=== PATIENT | female | born 1995 | race Caucasian/White ===

== ENCOUNTER 2025-03-09 19:15 | Emergency (ER) | payer OTHER, SELFPAY ==
[2025-03-09] VITALS (8 sets, daily range): BP systolic 117–147; BP diastolic 63–76; PULSE 80–114; RESP 18; TEMP 36.6; O2SAT 95–98; BMI 40.7
--- NOTE | 2025-03-09 19:29 | ED_ITS ---
HPI - Neck Pain/Injury General Chief Complaint: Neck Pain/Injury Stated Complaint: neck px 3 days, Time Seen by Provider: 03/09/25 19:25 Mode of arrival: Ambulatory History of Present Illness HPI Narrative: 29-year-old female fully immunized healthy patient with no significant pmh or psh hx presents with to 3 days of neck pain, cough with clear yet intermittent brown sputum production, sinus pressure and drainage, sorethroat, unrelieved with allergy medicines and no relief alternating Tylenol and ibuprofen. Patient denies fever, chills, body aches, stiff neck, rash, dental pain, difficulty swallowing, trauma to the area. Other than what is stated 14 pt ROS is negative. Related Data Previous Rx's Medication Instructions Recorded amoxicillin 500 mg capsule 500 mg PO BID #20 caps 06/07/19 cephalexin 500 mg capsule 500 mg PO BID #14 caps 03/09/25 tramadol 50 mg tablet 50 mg PO Q8H PRN pain #10 tabs 03/09/25 Allergies Allergy/AdvReac Type Severity Reaction Status Date / Time No Known Drug Allergies Allergy Verified 03/09/25 19:25 Review of Systems Review of Systems ROS Unobtainable: All systems reviewed & are unremarkable except as noted in HPI and below Patient History Social History Smoking Status: Current every day smoker Smoking Status: Current every day smoker tobacco type: cigarettes Exam Narrative Exam Narrative: GENERAL: [29] year old patient appears stated age. Well-developed patient, in mild distress. HEAD: Atraumatic. Normocephalic. EYES: Pupils equal round and reactive. Extraocular motions intact. No scleral icterus. No injection or drainage. ENT: Nose without bleeding, purulent drainage. Throat without erythema, tonsillar hypertrophy or exudate. Airway patent. NECK: Trachea midline. TTP midline c4-7 with dec ROM in all direcctions CARDIOVASCULAR: Regular rate and rhythm without murmurs, gallops, or rubs. RESPIRATORY: Clear to auscultation. Breath sounds equal bilaterally. No wheezes, rales, or rhonchi. GASTROINTESTINAL: Abdomen soft, non-tender, nondistended. EXTREMITIES: No edema or joint tenderness. BACK: Nontender without deformity or crepitance. No flank tenderness. NEURO: AOx3. SKIN: No rash or erythema of visible areas Initial Vital Signs Initial Vital Signs: Vital Signs Temperature 97.8 F 03/09/25 19:25 Pulse Rate 114 H 03/09/25 19:25 Respiratory Rate 18 03/09/25 19:25 Blood Pressure 147/76 H 03/09/25 19:25 Pulse Oximetry 97 03/09/25 19:25 Oxygen Delivery Method Room Air 03/09/25 19:25 Course Orders Ordered: ED Orders 03/09/25 20:00 CT soft tissue neck w con Stat 03/09/25 20:10 Covid-19 + FLU A/B + RSV - PCR Stat 03/09/25 20:15 CBC Auto Diff [Complete Blood Count AUTO DIFF] Stat CMP [Comprehensive Metabolic Panel] Stat Strep Grp A by PCR Rapid Stat Throat Culture Stat Discontinued Medications Cyclobenzaprine HCl (Cyclobenzaprine 10 Mg Tablet) 10 mg PO NOW ONE Stop: 03/09/25 20:47 Last Admin: 03/09/25 20:52 Dose: 10 mg Documented By: NURYS Lactated Ringer's (Lactated Ringers) 1,000 mls @ 1,000 mls/hr IV BOLUS ONE Stop: 03/09/25 20:59 Last Admin: 03/09/25 20:08 Dose: 1,000 mls/hr Documented By: NURYS Ketorolac Tromethamine (Ketorolac 30 Mg/Ml Vial) 30 mg IV NOW ONE Stop: 03/09/25 20:01 Last Admin: 03/09/25 20:08 Dose: 30 mg Documented By: NURYS Methylprednisolone (Methylprednisolone 125 Mg/2 Ml Vial) 125 mg IV NOW ONE Stop: 03/09/25 20:47 Last Admin: 03/09/25 20:52 Dose: 125 mg Documented By: NURYS Vital Signs Vital signs: Vital Signs - 8 hr 03/09/25 19:25 Temperature 97.8 F Pulse Rate 114 H Respiratory Rate 18 Blood Pressure 147/76 H Pulse Oximetry 97 Oxygen Delivery Method Room Air MDM - Neck Pain/Injury Lab Data 03/09/25 20:15 03/09/25 20:15 Labs: Lab Results 03/09/25 Range/Units 20:15 WBC 9.4 (4.5-11.0) X10^3/uL RBC 4.80 (4.0-5.2) X10^6/uL Hgb 14.6 (12.0-16.0) g/dL Hct 42.3 (36-46) % MCV 88.0 (80-100) fL MCH 30.4 (26-34) PG MCHC 34.6 (30-36) % RDW 13.5 (11.6-14.8) % Plt Count 325 (150-400) X10^3/uL Neut % (Auto) 69.3 (50-75) % Lymph % (Auto) 14.4 L (25-40) % [place] % (Auto) 13.9 (3-14) % Eos % (Auto) 1.8 L (2-4) % Baso % (Auto) 0.6 (0-2) % Neut # (Auto) 6500 (1621-0480) /uL Lymph # (Auto) 1300 (9890-0112) /uL [place] # (Auto) 1300 H (0-900) /uL Eos # (Auto) 200 (0-450) /uL Baso # (Auto) 100 (0-100) /uL Sodium 136 L (137-145) mmol/L Potassium 3.9 (3.4-5.1) mmol/L Chloride 105 (98-107) mmol/L Carbon Dioxide 22 (22-32) mmol/L BUN 9 (7-17) mg/dL Creatinine 0.70 (0.52-1.04) mg/dL Estimated GFR > 60 (>60) mL/min BUN/Creatinine Ratio 12.9 (6-22) Glucose 95 (70-99) mg/dL Calcium 8.9 (8.4-10.2) mg/dL Total Bilirubin 0.6 (0.2-1.3) mg/dL AST 31 (14-36) IU/L ALT 31 (<35) IU/L Alkaline Phosphatase 118 (38-126) U/L Total Protein 8.3 H (6.3-8.2) g/dL Albumin 4.4 (3.5-5.0) g/dL Globulin 3.9 (1.7-4.1) g/dL Albumin/Globulin Ratio 1.1 (1.0-2.8) Group A Strep (PCR) Negative (Negative) Imaging Data CT - cervical spine: Radiologist's Impression: [address] [address] [address] Scan Report Signed Patient: Catracho Blanton MR#: [id number] : 07/21/1935 Acct:[id number] Age/Sex: 89 / M Date of Service: 03/09/25 Loc: [place] [address] CT Scan Report Signed Patient: Yoselyn Christensen MR#: [id number] : 1995 Acct:[id number] Age/Sex: 29 / F Date of Service: 03/09/25 Loc: ED Accession Number: [id number] Procedure: CT soft tissue neck w con Ordering Provider: Rico Bateman D.O. PROCEDURE: CT SOFT TISSUE NECK W CON INDICATIONS: neck pain TECHNIQUE: After the administration of intravenous contrast, 3.0 mm axial sections acquired from the sella to the aortic arch. Additional oblique axial 3.0 mm sections acquired through the pharynx. 3 mm thick coronal and sagittal reformats were generated. For radiation dose reduction, the following was used: automated exposure control. COMPARISON: None. FINDINGS: Image quality: Excellent. Lymph nodes: No enlarged lymph nodes seen throughout the neck. Vessels: Visualized vasculature appears patent. Neck spaces: There is mild parapharyngeal tonsillar enlargement is seen suggestive of mild tonsillitis suggest clinical correlation. No discrete tonsillar abscess collection. Rest of the airway is patent. The vocal cords, false vocal cords, pyriform sinuses, epiglottis, vallecula, and tongue base all appear normal. Extramucosal spaces appear unremarkable. Glands: The parotid and submandibular glands appear normal. Thyroid gland is within normal limits. Miscellaneous: Visualized brain and orbits appear normal. Lung apices appear clear. Superficial soft tissues appear normal. Bones: No suspicious bony lesions. Bilateral mastoid is are well aerated. Mucosal thickening in bilateral ethmoid sinuses are seen. Mild mucosal thickening in bilateral maxillary sinuses also noted. IMPRESSION: 1. Slight prominence of the parapharyngeal tonsil concerning for low-grade tonsillitis. No discrete tonsillar abscess collection is seen. No gross neck soft tissue lymphadenopathy. The airway is patent. 2. Mild mucosal thickening in bilateral ethmoid sinuses and maxillary sinuses concerning for low-grade sinusitis. Bilateral mastoids are well aerated. MDM Narrative Medical decision making narrative: All lab work vital signs nurse triage note medication list and all previous ER visits including all imaging modalities reviewed. Patient given Solu-Medrol 125 mg IV Rocephin 1 g IV lactated Ringer 1 L bolus Flexeril and Toradol IV here. Differential diagnosis includes peritonsillar abscess, strep throat, COVID, flu, RSV, mono, sinusitis, tonsillitis Discharge Plan Departure Patient Disposition: Home Clinical Impression: Acute bacterial tonsillitis, Sinusitis, bacterial Instructions: DI for Pharyngitis/Tonsillopharyngitis -- Adult Activity Restrictions/Additional Instructions: Return with new or worsening symptoms. Take your medicines as directed. Follow up with PCP in 1-2 weeks if no improvement in symptoms. Prescriptions: New cephalexin 500 mg capsule 500 mg PO BID Qty: 14 0RF tramadol 50 mg tablet 50 mg PO Q8H PRN (Reason: pain) Qty: 10 0RF No Action amoxicillin 500 mg capsule 500 mg PO BID Qty: 20 0RF Referrals: Miscellaneous,Doctor, MD [Primary Care Provider] - Stand Alone Forms: Patient Portal/API/Survey
--- NOTE | 2025-03-09 20:00 | DI.CT.S_ITS ---
PROCEDURE: CT SOFT TISSUE NECK W CON INDICATIONS: neck pain TECHNIQUE: After the administration of intravenous contrast, 3.0 mm axial sections acquired from the sella to the aortic arch. Additional oblique axial 3.0 mm sections acquired through the pharynx. 3 mm thick coronal and sagittal reformats were generated. For radiation dose reduction, the following was used: automated exposure control. COMPARISON: None. FINDINGS: Image quality: Excellent. Lymph nodes: No enlarged lymph nodes seen throughout the neck. Vessels: Visualized vasculature appears patent. Neck spaces: There is mild parapharyngeal tonsillar enlargement is seen suggestive of mild tonsillitis suggest clinical correlation. No discrete tonsillar abscess collection. Rest of the airway is patent. The vocal cords, false vocal cords, pyriform sinuses, epiglottis, vallecula, and tongue base all appear normal. Extramucosal spaces appear unremarkable. Glands: The parotid and submandibular glands appear normal. Thyroid gland is within normal limits. Miscellaneous: Visualized brain and orbits appear normal. Lung apices appear clear. Superficial soft tissues appear normal. Bones: No suspicious bony lesions. Bilateral mastoid is are well aerated. Mucosal thickening in bilateral ethmoid sinuses are seen. Mild mucosal thickening in bilateral maxillary sinuses also noted. IMPRESSION: 1. Slight prominence of the parapharyngeal tonsil concerning for low-grade tonsillitis. No discrete tonsillar abscess collection is seen. No gross neck soft tissue lymphadenopathy. The airway is patent. 2. Mild mucosal thickening in bilateral ethmoid sinuses and maxillary sinuses concerning for low-grade sinusitis. Bilateral mastoids are well aerated. Dictated by: Paco Rubin M.D. on 03/09/2025 at 20:53 Approved by: Paco Rubin M.D. on 03/09/2025 at 20:55
[2025-03-09] MEDS: LACTATED RINGERS 1,000 ML 1000 ML IV (20:08)
[2025-03-09] MEDS: KETOROLAC 30 MG/ML VIAL IV (20:08)
[2025-03-09 20:23] LABS: Add Manual Diff / Slide Review NO; Basophils Absolute Auto 100 /uL (0-100); Basophils Percent Auto 0.6 % (0-2); Eosinophils Absolute Auto 200 /uL (0-450); Eosinophils Percent Auto 1.8 % (2-4); Hematocrit 42.3 % (36-46); Hemoglobin 14.6 g/dL (12.0-16.0); Lymphocytes Absolute Auto 1300 /uL (1100-4500); Lymphocytes Percent Auto 14.4 % (25-40); Mean Corpuscular HGB Conc 34.6 % (30-36); Mean Corpuscular Hemoglobin 30.4 PG (26-34); Monocytes Absolute Auto 1300 /uL (0-900); Monocytes Percent Auto 13.9 % (3-14); Neutrophils Absolute Auto 6500 /uL (1500-7000); Neutrophils Percent Auto 69.3 % (50-75); Platelet Count 325 X10^3/uL (150-400); Red Cell Distribution Width 13.5 % (11.6-14.8); White Blood Cell Count 9.4 X10^3/uL (4.5-11.0)
[2025-03-09 20:34] LABS: Alanine Aminotransferase 31 IU/L (<35); Albumin 4.4 g/dL (3.5-5.0); Albumin Globulin Ratio 1.1 (1.0-2.8); Alkaline Phosphatase 118 U/L (38-126); Aspartate Aminotransferase 31 IU/L (14-36); BUN Creatinine Ratio 12.9 (6-22); Bilirubin Total 0.6 mg/dL (0.2-1.3); Blood Urea Nitrogen 9 mg/dL (7-17); Calcium 8.9 mg/dL (8.4-10.2); Carbon Dioxide 22 mmol/L (22-32); Chloride 105 mmol/L (98-107); Estimated Glomerular Filt Rate > 60 mL/min (>60); Globulin 3.9 g/dL (1.7-4.1); Glucose 95 mg/dL (70-99); HEMOLYSIS < 15 (0-50); Potassium 3.9 mmol/L (3.4-5.1); Sodium 136 mmol/L (137-145); Total Protein 8.3 g/dL (6.3-8.2)
[2025-03-09 20:37] LABS: Strep Grp A by PCR Rapid Negative (Negative)
[2025-03-09] MEDS: CYCLOBENZAPRINE 10 MG TABLET PO (20:52)
[2025-03-09] MEDS: methylPREDNISolone 125 MG/2 ML VIAL IV (20:52)
[2025-03-09] MEDS: cefTRIAXone 1,000 MG in SODIUM CHLORIDE 0.9% 100 ML 200 MG IV (21:13)
[2025-03-09 21:24] LABS: Influenza A - CEPHEID Flu A NEGATIVE (NEGATIVE); Influenza B - CEPHEID Flu B NEGATIVE (NEGATIVE); Respiratory Syncytial Virus Negative (Negative)
[2025-03-09 21:38] LABS: COVID-19 CEPHEID 4-PLEX PCR Negative (Negative)
== END 2025-03-09 22:10 | disposition home or self-care (01) ==
PROVIDERS: Emergency Provider Family Medicine
DX: J03.90 Acute tonsillitis, unspecified (principal); J01.90 Acute sinusitis, unspecified; R05.9 Cough, unspecified; F17.210 Nicotine dependence, cigarettes, uncomplicated
CPT/HCPCS: 0241U; 36415; 70491; 80053; 85025; 87070; 87651; 96361; 96365; 96375; 99284; J0696; J1885; J2919; Q9967

== ENCOUNTER 2025-05-11 22:11 | Emergency (ER) | payer OTHER, SELFPAY ==
[2025-05-11 22:14] VITALS: BP 133/86; PULSE 90; RESP 20; TEMP 36.9; O2SAT 98; BMI 40.7
--- NOTE | 2025-05-11 22:30 | PC.NURSE ---
Ice pack provided in triage
[2025-05-11 23:38] VITALS: BP 130/66; PULSE 80; RESP 20; O2SAT 99
[2025-05-11 23:39] VITALS: BP 131/66; O2SAT 100
--- NOTE | 2025-05-12 02:51 | ED_ITS ---
HPI - Wound/Laceration General Chief Complaint: Wound/Laceration Stated Complaint: RT insepct bite thigh red,swollen 2xdays ago Time Seen by Provider: 05/12/25 02:47 Source: patient Mode of arrival: Ambulatory History of Present Illness HPI narrative: 29-year-old female complains of redness painful area right medial thigh, no definite insect bite or envenomation recalled. No current treatment. Area of redness seems about 8 cm, was outlined in pen. No fevers or chills. No recent injections or skin wounds in that area. Related Data Previous Rx's ?Medication ?Instructions ?Recorded cephalexin 500 mg capsule 500 mg PO QID 7 days #28 cap s 05/12/25 Allergies Allergy/AdvReac Type Severity Reaction Status Date / Time No Known Drug Allergies Allergy Verified 05/11/25 23:54 Patient History Social History Smoking Status: Current every day smoker Smoking Status: Current every day smoker tobacco type: cigarettes Exam Narrative Exam Narrative: GENERAL: Well-developed patient, in mild distress. HEAD: Atraumatic. Normocephalic. EYES: Pupils equal round and reactive. Extraocular motions intact. No scleral icterus. No injection or drainage. ENT: Nose without bleeding, purulent drainage. Throat without erythema, tonsillar hypertrophy or exudate. Airway patent. NECK: Trachea midline. Non tender CARDIOVASCULAR: Regular rate and rhythm without murmurs, gallops, or rubs. RESPIRATORY: Clear to auscultation. Breath sounds equal bilaterally. No wheezes, rales, or rhonchi. GASTROINTESTINAL: Abdomen soft, non-tender, nondistended. EXTREMITIES: Medial right thigh with a cm area of induration, no fluctuance, consistent with cellulitis. No urticarial plaque component. BACK: Nontender without deformity or crepitance. No flank tenderness. NEURO: AOx3. Motor functions grossly nonfocal. SKIN: No rash or erythema of visible areas Initial Vital Signs Initial Vital Signs: Vital Signs Temperature 98.4 F 05/11/25 22:14 Pulse Rate 90 05/11/25 22:14 Respiratory Rate 20 05/11/25 22:14 Blood Pressure 133/86 05/11/25 22:14 Pulse Oximetry 98 05/11/25 22:14 Oxygen Delivery Method Room Air 05/11/25 22:14 Course Orders Ordered: Discontinued Medications Cephalexin HCl (Cephalexin 250 Mg Capsule) 500 mg PO NOW ONE Stop: 05/12/25 02:52 Last Admin: 05/12/25 03:12 Dose: 500 mg Documented By: CLARISSE Vital Signs Vital signs: Vital Signs - 8 hr 05/12/25 03:11 05/12/25 03:12 05/12/25 03:12 Pulse Rate 70 81 Blood Pressure 131/90 Pulse Oximetry 100 96 Oxygen Delivery Method Room Air MDM - Wound/Laceration MDM Narrative Medical decision making narrative: 29-year-old female with redness painful skin wound right thigh, no injury or sting or bite from arthropod known, consider follicular abscess, though patient does not seem to think that she has had problems with any ingrown hairs. Trial of antibiotics. Keflex 1st dose given, prescription for further Keflex course. Advised [id number] analgesics as needed. Wound check with PCP in 2 days if not improving, return precautions discussed. Discharged home. Discharge Plan Departure Patient Disposition: Home Clinical Impression: Cellulitis of right thigh Activity Restrictions/Additional Instructions: Right thigh redness, no definite insect bite known, small central punctum. Consider follicular infection with spreading cellulitis. No obvious drainable fluid collection by clinical exam. Consider antibiotic, 1st dose of cephalexin given in the emergency department, prescription for further course sent to your pharmacy. Take antibiotics as directed. Take Tylenol and or Motrin for pain control as needed. Wound check with Re regular provider if not improving in the next couple of days. Return to this/nearest emergency department for any change worsening symptoms or any concerns prior. Prescriptions: New cephalexin 500 mg capsule 500 mg PO QID 7 Days Qty: 28 0RF Referrals: Miscellaneous,DoctorMD [Primary Care Provider, Medical] Stand Alone Forms: Patient Portal/API
[2025-05-12 03:11] VITALS: PULSE 70; O2SAT 100
[2025-05-12 03:12] VITALS: BP 131/90; PULSE 81; O2SAT 96
== END 2025-05-12 03:38 | disposition home or self-care (01) ==
PROVIDERS: Emergency Provider Emergency Medicine
DX: L03.115 Cellulitis of right lower limb (principal)
CPT/HCPCS: 99283